=== PATIENT | female | born 1960 | race Caucasian/White ===

== ENCOUNTER 2025-06-15 07:56 | Outpatient (REF) | payer MEDICARE, SELFPAY ==
--- OUTSIDE RECORDS SUMMARY | 2025-06-15 08:01 | XMS_ITS | Clinical Summary ---
Author Organization [facility] Address [address] [place] [phone] Phone Care Team Providers Care Toolroom Checker Name Role Phone Alexus Villegas MD, MPH Primary Care Provid er Allergies Active Allergy Reactions Criticality Noted Date Comments Codeine Nausea and/or Vomiting Medium 04/26/2020 Medications magnesium oxide 250 mg (150 mg elemental) Tab Take 250 mg by mouth daily. Active ascorbic acid, vitamin C, (VITAMIN C) 250 MG tablet Take 1,000 mg by mouth daily. Active cholecalciferol (VITAMIN D3) 5,000 unit capsule Take 1 capsule (5,000 Units total) by mouth daily. 90 capsule 3 08/08/19 22 Active metroNIDAZOLE (METROCREAM) 0.75 % cream APPLY THIN LAYER TWICE A DAY TO FACE FOR ROSACEA 11/20/19 24 Active jltrhsbfwewx-vvejxysa-jh tein (CENTRUM SILVER) Tab Take 1 tablet by mouth daily. Active simvastatin (ZOCOR) 40 MG tabletIndications:Pure hypercholesterolemia TAKE 1 TABLET BY MOUTH EVERY DAY 90 tablet 3 02/06/20 25 Active Active Problems Problem Noted Date Diagnosed Date Osteopenia of necks of both femurs 08/20/2023 Overview (08/20/2023): DEXA 2023- femoral neck osteopenia, otherwise normal Family history of colon cancer 08/08/2021 Overview (08/08/2021): Mother, age 74 yo Assessment & Plan (12/11/2022 8:50 AM EDT): Due 2023 Vitamin D deficiency 08/08/2021 Assessment & Plan (08/08/2021 11:32 AM EST): Restart Vit D supplement Pure hypercholesterolemia 04/26/2020 Assessment & Plan (01/01/2025 8:31 AM EDT): Check labs; lipid panel ordered today for dose monitoring. Assessment & Plan (12/11/2022 9:21 AM EDT): Discussed strategies for increasing medication intake. Assessment & Plan (08/08/2021 11:32 AM EST): Restart simvastatin. Assessment & Plan (04/26/2020 1:08 PM EST): ASCVD risk 1.9% Family history is only major risk factor. Encounters Date Type Department Care Team Description 04/08/2025 Orders Only [facility] [address] [place] [address] Provider, MD Kishor from Last 3 Months Immunizations Immunization Administration Dates Next Due COVID-19 (Pre-04/16) Moderna Vaccine, mRNA, PF 05/09/2021,05/09/2021,07/15/2020,2019 INFLUENZA, SPLIT VIRUS, TRIVALENT PF 03/23/2024 INFLUENZA, SPLIT VIRUS, TRIV ALENT W/ PRESERVATIVE IM 04/19/2016 Influenza Quadrivalent Prese rvative Free IM 03/29/2023,04/13/2022,04/01/2021,2018,04/05/2018 Influenza Quadrivalent w/ Preservative IM 03/26/2019,04/09/2017 Influenza, Unspecified Formulation 04/14/2019 MMR 01/26/2020,01/26/2020,04/24/1996 Tdap 11/21/2018 Family History Medical History Relation Comments Coronary artery disease Brother 1 Alcohol abuse Brother 2 Alzheimer's disease Father No Known Problems Grandson Colon cancer Mother Breast cancer Paternal Grandmother in 195 9 s Cancer Sister biliary Relation Status Comments Brother 1 (Age 57) Brother 2 from liver failu re from alcohol Daughter 1 Alive Daughter 2 Alive Father (Age 85) Grandson Alive Mother (Age 74) Paternal Grandmother Sister Alive Social History Tobacco Use Types Packs/Day Years Used Date Smoking Tobacco: Never Smokeless Tobacco: Never Tobacco Cessation:Counseling Given: Not Answered Alcohol Use Standard Drinks/Week Comments Yes 0 (1 standard drink = 0.6 oz pur e alcohol) Socially not daily or weekly Child or Family Care Answer Date Record ed Do you have problems with on e of the following making it difficult for you to work, study, or receive health care? No 12/25/2024 Education Answer Date Recorded Are you interested in help w ith more adult education (for example, completing high school, GED, job training, learning the Nauruan language, technical skills, or developing parenting skills)? No 12/25/2024 Are you concerned about learning? Not on file 12/25/2024 No 12/25/2024 Yes 12/25/2024 Food Answer Date Recorded Within the past 6 months we worried whether our food would run out before we got money to buy more. Never True 12/25/2024 Within the past 6 months the food we bought just didn't last and we didn't have enough money to get more. Never True Residential Stability Answer Date Recor ded What is your housing situation today? I have daysi sing 12/25/2024 How many times have you move d in the past 12 months? Zero (I did not move) 12/25/2024 Paying for Meds Answer Date Recorded Do you have trouble paying for medicines? No 12/25/2024 Paying Utility Bills Answer Date Record ed Do you have trouble paying your heating or elect ricity bill? No 12/25/2024 Transportation Answer Date Recorded Has the lack of transportati on kept you from medical appointments or from getting medications? No 12/25/2024 Unemployment Answer Date Recorded Are you currently unemployed or working on a part-time or temporary basis, and looking for work? No 08/08/2021 Digital Access Answer Date Recorded No 12/25/2024 Yes 12/25/2024 Do you have reliable internet access at home? Ye oma 12/25/2024 Do you have a device (e.g., phone, tablet, computer) with a working camera? Yes 12/25/2024 Intimate Partner Violence Answer Date R ecorded Are you denied basic needs s uch as food, clothing, or medical care? No 12/25/2024 In the past 12 months have y ou been in a relationship with a person who hurts, threatens, or tries to control you? No 12/25/2024 Are you denied basic needs s uch as food, clothing, or medical care? No 12/25/2024 In the past 12 months have y ou been in a relationship with a person who hurts, threatens, or tries to control you? No 12/25/2024 Comments No Sex and Gender Information Value Date Recorded Sex Assigned at Not on file Legal Sex Female 1:05 PM EDT Gender Identity Not on file Sexual Orientation Not on file Last Filed Vital Signs Vital Sign Reading Time Taken Comments Blood Pressure 124/74 01/01/2025 8:10 AM EDT Pulse 62 01/01/2025 8:10 AM EDT Temperature 36.2 C (97.2 F) 07/11/2024 10:33 AM EST Respiratory Rate 18 07/11/2024 10:4 5 AM EST Oxygen Saturation 99% 01/01/2025 8:10 AM EDT Inhaled Oxygen Concentration - - Weight 82.9 kg (182 lb 12.8 oz) 01/01/2025 8:10 AM EDT Height 160 cm (5' 3 ) 07/11/2024 9:54 AM EST Body Mass Index 32.38 07/11/2024 9:54 AM EST Plan of Treatment Upcoming Encounters Date Type Department Care Team (Late st Contact Info) Description 09/05/2024 Procedure Pass [address] [address] 09/10/2025 7:45 AM EDT Appointment [address] [address] Alexus Villegas MD, MPH [address] [place] [phone] 01/07/2026 8:00 AM EDT Office Visit [facility] [address] [facility] [address] [place] [address] Puja Barrios MD [address] [facility] [address] [place] [address] [email or web address] Health Maintenance Due Date Last Done Comments COLOGUARD 08/31/2004 FIT TEST 08/31/2004 FOBT 08/31/2004 SIGMOIDOSCOPY 08/31/2004 VIRTUAL COLONOSCOPY 08/31/2004 PNEUMOCOCCAL VACCINES (50+ years) (1 of 1 - PCV) 08/31/2009 ZOSTER VACCINES (1 of 2) 08/31/2009 MAMMOGRAM 05/05/2024 05/05/2022, 06/27, 05/14/2018, Additional history exists INFLUENZA VACCINE (#1) 2025 , 03/29/2023, 04/13/2022, Additional history exists COVID-19 VACCINE (2024- season) 2025 05/04/2024, 04/09/2023, 03/17/2022, Additional history exists DEPRESSION SCREENING 12/25/2025 12/25/2024 SCREENING FOR DIABETES 06/01/2026 06/01/2023 LIPID PANEL 06/01/2028 06/01/2023, 08/01/2021 Adult Td,Tdap Booster 11/21/2028 11/21/2018 COLONOSCOPY 07/11/2029 07/11/2024 COLORECTAL CANCER SCREENING 07/11/2029 RSV VACCINE (1 - 1-dose 75+ series) 08/31/2034 HEPATITIS C SCREENING Completed 08/01/2021 HIV ONE-TIME SCREENING (18-65 YEARS) Completed 08/01/2021 OSTEOPOROSIS SCREENING INITIAL (ONE-TIME) Completed 08/17/2023 SMOKING STATUS SCREENING (Once After 26 Yrs) Completed 01/01/2025 HEPATITIS A VACCINES Aged Out No long er eligible based on patient's age to complete this topic HIB VACCINES Aged Out No longer eligi ble based on patient's age to complete this topic MENINGOCOCCAL VACCINES (ACWY) Aged Out No longer eligible based on patient's age to complete this topic MENINGOCOCCAL VACCINES (B) Aged Out N o longer eligible based on patient's age to complete this topic Medical Devices Not on file Procedures Procedure Name Priority Date/Time Associated Diagnosis Comments OUTSIDE PATHOLOGY Routine 03/27/2025 3:4 1 PM EDT ENDOSCOPY, COLON 07/11/2024 10:08 AM EST BD DXA AXIAL (SPINE) WITH HIP Routine 08/17/2023 8:18 AM EST Post menopausal syndrome LIPID PANEL Routine 06/01/2023 8:39 AM EST Pure hypercholesterolemia BI MAMMOGRAM SCREENING WITH TOMOSYNTHESIS WITH CAD (BILATERAL) Routine 05/05/2022 2:14 PM EST Breast screening HEPATITIS C ANTIBODY, QUALITATIVE Routine 08/01/2021 8:12 AM EST Need for hepatitis C screening test from Last 3 Months or Most Recently Relevant to Health Maintenance Results * Outside Pathology (03/27/2025 3:41 PM EDT) us Historical Provider PATHOLOGY ORDERABLES Zohra thrasher Result * ENDOSCOPY, COLON (07/11/2024 10:08 AM EST) Narrative Transcriptions Al Gonzalez MD - 07/11/2024 10:08 AM EST [facility] Patient Name: Ana Rosa Farley Attending MD:: AL GONZALEZ MD, Procedure Date: 07/11/2024 10:08 AM Date of : 1960 Age: 63 Admit Type: Outpatient Gender: Female Room: [facility] 05 Referring MD: Alexus Villegas Exam Type: Colonoscopy Indications: Screening for colorectal malignant neoplasm,Screening patient at increased risk: Family history of 1st-degree relative with colorectal cancer at age60 years (or older) Medications: Monitored Anesthesia Care Procedure: Informed consent was obtained from the patientafter discussion of the indications, limitations, alternatives, benefits, and risks of the procedure. Risks specifically discussed include but are not limited to medication reactions, missed lesions, bleeding, perforation, or the need for emergent surgery. Throughout the procedure, the patient's blood pressure, pulse, end-tidal CO2, and oxygensaturations were monitored continuously. The Olympus adult variable colonoscope [id number] #3 was introduced through the anus and advanced to the terminal ileum. The colonoscopy was performedwithout difficulty. The patient tolerated the procedurewell. The quality of the bowel preparation was good. Anatomical landmarks were photographed. Complications: No immediate complications. Estimated blood loss:None. Findings: The perianal and digital rectal examinations were normal. Two sessile polyps were found in the rectum. The polyps were small in size. These polyps wereremoved with a cold snare. Resection and retrieval were complete. The recto-sigmoid colon, sigmoid colon, descending colon, splenic flexure, transverse colon, hepatic flexure, ascending colon, cecum, appendicealorifice, ileocecal valve, ileum, rectum (on retroflexion)and ascending colon (on retroflexion) appearednormal. Impression: - Two small polyps in the rectum, removed with acold snare. Resected and retrieved. - The rectum (on retroflexion), ascending colon (on retroflexion), sigmoid colon, descending colon, splenic flexure, transverse colon, hepatic flexure, ascending colon, cecum, recto-sigmoid colon,ileocecal valve, appendiceal orifice and terminal ileum are normal. Recommendation: - Discharge patient to home. - Resume previous diet. - Continue present medications. - Await pathology results. - Repeat colonoscopy in 5 years for surveillance. - I will send you pathology results by letter. Ifyou do not get results in 3 weeks telephone stewart. AL GONZALEZ MD 07/11/2024 10:30:53 AM This report has been signed electronically. Number of Addenda: 0 Note Initiated On: 07/11/2024 10:08 AM Procedure Code(s): --- Professional --- 43293, Colonoscopy, flexible; with removal of tumor(s), polyp(s), or other lesion(s) by snare technique --- Technical --- 85320, Colonoscopy, flexible; with removal of tumor(s), polyp(s), or other lesion(s) by snare technique Diagnosis Code(s): --- Professional --- Z12.11, Encounter for screening for malignantneoplasm of colon Z80.0, Family history of malignant neoplasm of digestive organs D12.8, Benign neoplasm of rectum --- Technical --- Z12.11, Encounter for screening for malignantneoplasm of colon Z80.0, Family history of malignant neoplasm of digestive organs D12.8, Benign neoplasm of rectum CPT copyright 2021 [employer]. All rights reserved. The codes documented in this report are preliminary and upon starbucks clerk reviewmay be revised to meet current compliance requirements. Procedure Date: 07/11/2024 10:08:[address] [place] [address] [place] Alexus Villegas MD, MPH GI PROCEDURE ORDERAB LES Final Result * BD DXA AXIAL (SPINE) WITH HIP (08/17/2023 8:18 AM EST) Anatomical Region Laterality Modality Bone Density Bone Density 08/20/2023 12:5 2 PM EST Impressions 08/20/2023 2:51 PM EST Osteopenia based upon bone mineral density in the bilateral femoral necks. ATTESTATION: I, Marcel Roldan as teaching physician, have reviewed the images for this case and if necessary edited the report originally created by Tony العراقي. Narrative 08/20/2023 2:51 PM EST BD DXA AXIAL (SPINE) WITH HIP INDICATION: Postmenopausal estrogen deficiency. Screening for osteoporosis. COMPARISON: None. Evaluation of the lumbar spine and both hips is obtained and appears technically adequate. The lumbar spine from L1 through L4 discloses a total bone mineral density of 1.019 g/cm2 T-score: -0.3 Z-Score: 1.4 WHO Classification: Normal The right hip (total) has a total bone mineral density of 0.827 g/cm2 T-score: -0.9 Z-Score: 0.2 WHO Classification: Normal The right hip (neck) has a total bone mineral density of 0.680 g/cm2 T-score: -1.5 Z-Score: -0.1 WHO classification: Osteopenia The left hip (total) has a total bone mineral density of 0.839 g/cm2 T-score: -0.8 Z-Score: 0.3 WHO Classification: Normal The left hip (neck) has a total bone mineral density of 0.642 g/cm2 T-score: -1.9 Z-Score: -0.4 WHO classification: Osteopenia FRAX: 10-Year Fracture Risk Major Osteoporotic Fracture: 9.4% Hip Fracture: 1.1% Procedure Note Marcel Roldna MD - 08/20/2023 BD DXA AXIAL (SPINE) WITH HIP INDICATION: Postmenopausal estrogen deficiency. Screening forosteoporosis. COMPARISON: None. Evaluation of the lumbar spine and both hips is obtained and appearstechnically adequate. The lumbar spine from L1 through L4 discloses a total bone mineral densityof 1.019 g/cm2 T-score: -0.3 Z-Score: 1.4 WHO Classification: Normal The right hip (total) has a total bone mineral density of 0.827 g/cm2 T-score: -0.9 Z-Score: 0.2 WHO Classification: Normal The right hip (neck) has a total bone mineral density of 0.680 g/cm2 T-score: -1.5 Z-Score: -0.1 WHO classification: Osteopenia The left hip (total) has a total bone mineral density of 0.839 g/cm2 T-score: -0.8 Z-Score: 0.3 WHO Classification: Normal The left hip (neck) has a total bone mineral density of 0.642 g/cm2 T-score: -1.9 Z-Score: -0.4 WHO classification: Osteopenia FRAX: 10-Year Fracture Risk Major Osteoporotic Fracture: 9.4% Hip Fracture: 1.1% IMPRESSION: Osteopenia based upon bone mineral density in the bilateral femoralnecks. ATTESTATION: I, Marcel Roldan as teaching physician, have reviewed theimages for this case and if necessary edited the report originally createdby Tony العراقي. us Alexus Villegas MD, MPH IMG BD BONE DENSITY DEXA Final Result * (ABNORMAL) Lipid panel (06/01/2023 8:39 AM EST) HDL 68 mg/dL [facility] Comment: Interpretation <40 mg/dL: Low HDL cholesterol (major risk factor for CHD) Greater than or equal to 60 mg/dL: High HDL cholesterol ( negative risk factor for CHD) HDL - cholesterol is affected by a number of factors, e.g. smoking, excerise, hormones, sex and age. CHOLESTEROL 204 0 - 240 mg/dL [facility] TRIGLYCERIDES 62 30 - 160 mg/dL [facility] LDL 124 50 - 129 mg/dL [facility] Comment: LDL levels in terms of risk for coronary heart disease: <100 mg/dL: Optimal 100-129 mg/dL: Near or above optimal 130-159 mg/dL: Borderline high 160-189 mg/dL: High >190 mg/dL: Very High CARDIAC RISK RATIO 3.0(L) 3.3 - 4.4 [facility] Blood 06/01/2023 8:39 AM EST 06/01/2023 8:43 AM EST us Alexus Villegas MD, MPH LAB BLOOD BKR ORDERA BLES Final Result [address] [place] [address] * BI MAMMOGRAM SCREENING WITH TOMOSYNTHESIS WITH CAD (BILATERAL) (05/05/2022 2:14 PM EST) Anatomical Region Laterality Modality Breast Left, Breast Right, Breast Bilateral Bila teral Mammography 05/09/2022 5:23 PM EST Impressions 05/09/2022 5:38 PM EST No mammographic signs of malignancy. Annual screening is recommended. BI-RADS CATEGORY: 1 - Negative. DENSITY: The breast tissue is almost entirely fat. Narrative 05/09/2022 5:38 PM EST Bilateral mammography is performed in conjunction with computed aided detection. 3-D tomography along with 2-D C view imaging was also performed. Comparison made to previous dated as far back as 08/23/2016 and as recent as 07/24/2019. No suspicious masses, areas of architectural distortion or suspicious microcalcifications. Procedure Note Al Kim MD - 05/09/2022 Bilateral mammography is performed in conjunction with computed aideddetection. 3-D tomography along with 2-D C view imaging was alsoperformed. Comparison made to previous dated as far back as 08/23/2016 andas recent as 07/24/2019. No suspicious masses, areas of architectural distortion or suspiciousmicrocalcifications. IMPRESSION: No mammographic signs of malignancy. Annual screening is recommended. BI-RADS CATEGORY: 1 - Negative. DENSITY: The breast tissue is almost entirely fat. us Alexus Villegas MD, MPH IMG MG EXAMS Zohra l Result * Hepatitis C antibody, qualitative (08/01/2021 8:12 AM EST) HCV NON-REACTIV E NON-REACTI VE [facility] Blood 08/01/2021 8:12 AM EST 08/01/2021 8:16 AM EST us Alexus Villegas MD, MPH LAB BLOOD BKR ORDERA BLES Final Result [facility] [address] [place] [address] from Last 3 Months or Most Recently Relevant to Health Maintenance Insurance [email or web address] MEDEX SUPPLEMENT MEDICARE PART A & B [email or web address] MEDEX SUPPLEMENT MEDICARE PART A & B MEDEX SUPPLEMENT MEDICARE PART A & B [employer] MEDEX SUPPLEMENT MEDICARE PART A & B [employer] MEDEX SUPPLEMENT MEDICARE PART A & B [facility] MEDEX SUPPLEMENT MEDICARE PART A & B Care Teams Toolroom Checker Relationship Specialty Start Date End Date Alexus Villegas MD, MPH [address] [place] [address] [address] [place] [address] [email or web address] PCP - General Family Medicine 04/26/20 Additional Source Comments The information contained in this document represents components of the legal health record. It is not the complete legal health record.[facility]
--- OUTSIDE RECORDS SUMMARY | 2025-06-15 08:01 | XMS_ITS | Encounter Summary ---
Author Organization [facility] Address [address] [place] [address] Phone Care Team Providers Care Apprenticeship Representative Name Role Phone Alexus Villegas MD, MPH Primary Care Provid er Encounter Details Date Type Department Care Team (Late st Contact Info) Description 04/13/2022 Procedure Pass [facility], [address] [address] Social History Tobacco Use Types Packs/Day Years Used Date Smoking Tobacco: Never Smokeless Tobacco: Never Alcohol Use Standard Drinks/Week Comments Yes 0 (1 standard drink = 0.6 oz pur e alcohol) Socially not daily or weekly Child or Family Care Answer Date Record ed Do you have problems with on e of the following making it difficult for you to work, study, or receive health care? No 08/08/2021 Education Answer Date Recorded Are you interested in help w ith more adult education (for example, completing high school, GED, job training, learning the [place]an language, technical skills, or developing parenting skills)? No 08/08/2021 Are you concerned about learning? Not on file 08/08/2021 No 08/08/2021 Yes 08/08/2021 Food Answer Date Recorded Within the past 6 months we worried whether our food would run out before we got money to buy more. Never True 08/08/2021 Within the past 6 months the food we bought just didn't last and we didn't have enough money to get more. Never True Residential Stability Answer Date Recor ded What is your housing situation today? I have daysi irizarry 08/08/2021 How many times have you move d in the past 12 months? Zero (I did not move) 08/08/2021 06 Are you worried that in t he next 2 months, you may not have your own housing to live in? No 08/08/2021 Paying for Meds Answer Date Recorded Do you have trouble paying for medicines? No 08/08/2021 Paying Utility Bills Answer Date Record ed Do you have trouble paying your heating or elect ricity bill? No 08/08/2021 Transportation Answer Date Recorded Has the lack of transportati on kept you from medical appointments or from getting medications? No 08/08/2021 Unemployment Answer Date Recorded Are you currently unemployed or working on a part-time or temporary basis, and looking for work? No 08/08/2021 Comments No Sex and Gender Information Value Date Recorded Sex Assigned at Not on file Legal Sex Female 1:05 PM EDT Gender Identity Not on file Sexual Orientation Not on file documented as of this encounter Plan of Treatment Upcoming Encounters Date Type Department Care Team (Late st Contact Info) Description 09/05/2024 Procedure Pass [address] [address] 09/10/2025 7:45 AM EDT Appointment [address] [address] Alexus Villegas MD, MPH [address] [place] [address] 01/07/2026 8:00 AM EDT Office Visit [facility] [address] [address] Puja Barrios MD [address] [place] [phone] documented as of this encounter Visit Diagnoses Not on filedocumented in this encounter Additional Health Concerns Assessment Noted Time PHQ-2 Depression Total Score: 0 08/08/19 22 9:05 AM EST documented as of this encounter Care Teams Apprenticeship Representative Relationship Specialty Start Date End Date Alexus Villegas MD, MPH [address] [place] [phone] [email or web address] PCP - General Family Medicine 04/26/20 documented as of this encounter Additional Source Comments The information contained in this document represents components of the legal health record. It is not the complete legal health record.[facility]
--- OUTSIDE RECORDS SUMMARY | 2025-06-15 08:02 | XMS_ITS | Patient Health Record ---
[facility] Address [address] [place] [address] Care Team Providers Care Pharmacy Scheduler Name Role Phone BakariMichelle redmondherine Primary Care Provider Unavail able [facility] Unavailable [phone] Allergies Allergen (clinical drug ingredient) Drug/Non Drug Allergy documented on EMR Reaction Allergy Type Onset Date Status codeine Codeine nausea Drug Allergy Active hydrocodone HYDROcodone nausea Drug Allergy Act sandie Reason For Referral No Information Medications Medication SIG (Take, Route, Fr equency, Duration) Notes Start Date End Date Status Simvastatin 40 MG 1 tablet in the even ing Orally Once a day Active Vitamin D Active Vitamin C Active Magnesium Active Immunizations Vaccine Route Administration Date Status Comme nts Influenza Unknown 03/25/2024 Administered Social History Tobacco Use: Social History Observation Description Date Details (start date - stop date) Never Smoker NA - NA Tobacco use other than smoking: Question Answer Notes Are you an other tobacco user? No Tobacco Control (Standard) Question Answer Notes Tobacco use: Nonsmoker Additional Findings: Tobacco non-user Current no nsmoker AUDIT-C (Standard) Question Answer Notes Did you have a drink contain ing alcohol in the past year? Yes How often did you have a dri nk containing alcohol in the past year? Declined to specify (0 point) How many drinks did you have on a typical day when you were drinking in the past year? Declined to specify (0 point) How often did you have six o r more drinks on one occasion in the past year? Declined to specify (0 point) Points 0 Interpretation Negative Problems Problem Type SNOMED Code ICD Code Onset Dates Problem Status W/U Status Risk Notes Problem Acquired hallux valgus (33044803) Hallux valgus (acquired), left foot (M20.12) Active confirmed Vital Signs Blood pressure diastolic 65 mm Hg 01/02/2025 Height 5ft 3inch in 01/02/2025 Blood pressure systolic 128 mm Hg 01/02/2025 Weight 180 lbs 01/02/2025 BMI 31.88 kg/m2 01/02/2025 Encounters Encounter Location Date Provider Diagnosis [facility] [address] [address] 01/02/2025 [facility] Pain in left foot M79.672 ; Pain in left ankle and joints of left foot M25.572 ; Bursitis of left foot M77.52 and Hallux valgus (acquired), left foot M20.[address] [facility] [address] 01/02/2025 [facility] Assessments Encounter Date Diagnosis (ICD Code) Assessment Notes Treatment Notes Treatment Clinical Notes Section Notes 01/02/2025 Pain in left ankle and joints of left foot (ICD-10 - M25.572) 01/02/2025 Pain in left foot (ICD-10 - M79.672) 01/02/2025 Bursitis of left foot (ICD-10 - M77.52) 01/02/2025 Hallux valgus (acquired), left foot (ICD-10 - M20.12) Plan Of Treatment Pending Test Test Name Order Date X ray : Foot, left 3V 01/02/2025 Insurance Providers Payer Name Payer Address Payer Phone Subscriber Number Group Number Insured Name Patient Relationship to Insured Coverage Start Date Coverage End Date [facility] [employer] [address] [place] [phone] [id number] Kristofer Farley Self - patient is the insured 5 [employer] [address] [place] [address] [phone] [id number] Kristofer Farley Self - patient is the insured Medical (General) History Medical History History ICD Code Cholesterol covid-19 Measles Mumps Chicken pox
--- OUTSIDE RECORDS SUMMARY | 2025-06-15 08:02 | XMS_ITS | Patient Health Record ---
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 Name Role Phone Christa Jackson Primary Care Provider Leobardo Muller Jr Unavailable Allergies Allergen (clinical drug ingredient) Drug/Non Drug Allergy documented on EMR Reaction Allergy Type Onset Date Status codeine Codeine Sulfate Unknown Drug Allergy A ctive Reason For Referral No Information Medications Medication SIG (Take, Route, Frequency, Duration) Notes Start Date End Date Status Simvastatin 20 MG Tablet 1 tablet in the evening Orally Once a day Active Suprep Bowel Prep 1 Solution as directed Orally 1; Duration: 1 dose 07/24/2018 Active Immunizations Vaccine Route Administration Date Status Comme nts Influenza Unknown 04/16/2018 Administered Social History Social History Drugs/Alcohol: Social Info Question Answer Notes Alcohol Screen Did you have a drink containing alcohol in the past year? Yes How often did you have a drink containing alcohol in the past year? 2 to 4 times a month (2 points) How many drinks did you have on a typical day when you were drinking in the past year? 1 or 2 drinks (0 point) How often did you have 6 or more drinks on one occasion in the past year? 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 Problems Problem Type SNOMED Code ICD Code Onset Dates Problem Status W/U Status Risk Notes Problem Colon cancer screening (659948138) Colon cancer screening (V76.51) Active confirmed Problem Colon cancer screening (422580360) Colon cancer screening (Z12.11) Active confirmed Problem Pre-procedure evaluation check (062174385) Encounter for other preprocedural examination (Z01.818) Active confirmed Problem Family History of Cancer of Colon (Situation) (891943730) Family history of colon cancer (Z80.0) Active confirmed Plan Of Treatment Future Test Test Name Order Date COLONOSCOPY 12/27/2012 COLONOSCOPY 07/24/2018 Insurance Providers Payer Name Payer Address Payer Phone Subscriber Number Group Number Insured Name Patient Relationship to Insured Coverage Start Date Coverage End Date [facility] [address] [address] [place] [id number] JOAHNA GOLDMAN Self - patient is the insured Medical (General) History Medical History History ICD Code colonoscopy 04/04/13 colon polyps, hyperplastic and lymphoid elevated cholesterol iron def anemia menorrhagia Denies IN,DM,CVA,Lung disease,renal dise ase Surgical History Surgery Date(Month/Year) Caesarean section x1 wisdom teeth extraction
--- OUTSIDE RECORDS SUMMARY | 2025-06-15 08:02 | XMS_ITS | Encounter Summary ---
Author Organization [facility] Address [address] [place] [address] Phone Care Team Providers Care Metal Worker Name Role Phone Alexus Villegas MD, MPH Primary Care Provid er Encounter Details Date Type Department Care Team (Late st Contact Info) Description 04/13/2022 Transcribe Orders Virtual Department [address] [place] [address] Alexus Villegas MD, MPH [address] [facility] [address] [place] [address] [email or web address] Breast screening (Primary Dx) Social History Tobacco Use Types Packs/Day Years Used Date Smoking Tobacco: Never Smokeless Tobacco: Never Alcohol Use Standard Drinks/Week Comments Yes 0 (1 standard drink = 0.6 oz pur e alcohol) Rare Child or Family Care Answer Date Record ed Do you have problems with on e of the following making it difficult for you to work, study, or receive health care? No 08/08/2021 Education Answer Date Recorded Are you interested in help w ith more adult education (for example, completing high school, GED, job training, learning the Mongolian language, technical skills, or developing parenting skills)? [...] and looking for work? No 08/08/2021 Comments Unknown Sex and Gender Information Value Date Recorded Sex Assigned at Not on file Legal Sex Female 1:05 PM EDT Gender Identity Not on file Sexual Orientation Not on file documented as of this encounter Plan of Treatment Upcoming Encounters Date Type Department Care Team (Late st Contact Info) Description 09/05/2024 Procedure Pass [address] [address] 09/10/2025 7:45 AM EDT Appointment [address] [address] Alexus Villegas MD, MPH [address] [address] 01/07/2026 8:00 AM EDT Office Visit [facility] 15 [facility] [address] [place] [address] Puja Barrios MD [address] [address] [email or web address] documented as of this encounter Results * BI MAMMOGRAM SCREENING WITH TOMOSYNTHESIS WITH [...] fat. us Alexus Villegas MD, MPH IMG EXAMS Zohra thrasher Result documented in this encounter Visit Diagnoses Diagnosis Breast screening- Primary Breast screening, unspecified Breast screening Breast screening, unspecified documented in this encounter Additional Health Concerns Assessment Noted Time PHQ-2 Depression Total Score: 0 08/08/19 22 9:05 AM EST documented as of this encounter Care Teams Metal Worker Relationship Specialty Start Date End Date Alexus Villegas MD, MPH [address] [place] [id number] [email or web address] PCP - General Family Medicine 04/26/20 documented as of this encounter Additional Source Comments The information contained in this document represents components of the legal health record. It is not the complete legal health record.[facility]
--- OUTSIDE RECORDS SUMMARY | 2025-06-15 08:02 | XMS_ITS | Encounter Summary ---
Author Organization [facility] Address [address] [place] [address] Phone Care Team Providers Care Experimental Aircraft Mechanic Name Role Phone Alexus Villegas MD, MPH Primary Care Provid er Encounter Details Date Type Department Care Team (Late st Contact Info) Description 07/11/2024 Procedure Pass [facility] Admitting Dept Virtual Department [address] [place] [address] Social History Tobacco Use Types Packs/Day Years [...] work, study, or receive health care? No 12/13/2023 Education Answer Date Recorded Are you interested in help w ith more adult education (for example, completing high school, GED, job training, learning the Chinese language, technical skills, or developing parenting skills)? No 12/13/2023 Are you concerned about learning? Not on file 12/13/2023 No 12/13/2023 Yes 12/13/2023 Food Answer Date Recorded Within the past 6 months we worried whether our food would run out before we got money to buy more. Never True 12/13/2023 Within the past 6 months the food we bought just didn't last and we didn't have enough money to get more. Never True Residential Stability Answer Date Recor ded What is your housing situation today? I have daysi irizarry 12/13/2023 How many times have you move d in the past 12 months? Zero (I did not move) 12/13/2023 Paying for Meds Answer Date Recorded Do you have trouble paying for medicines? No 12/13/2023 Paying Utility Bills Answer Date Record ed Do you have trouble paying your heating or elect ricity bill? No 12/13/2023 Transportation Answer Date Recorded Has the lack of transportati on kept you from medical appointments or from getting medications? No 12/13/2023 Unemployment Answer Date Recorded Are you currently unemployed or working on a part-time or temporary basis, and looking for work? No 08/08/2021 Digital Access Answer Date Recorded No 12/13/2023 Yes 12/13/2023 Do you have reliable internet access at home? Ye s 12/13/2023 Do you have a device (e.g., phone, tablet, computer) with a working camera? Yes 12/13/2023 Intimate Partner Violence Answer Date R ecorded Are you denied basic needs s uch as food, clothing, or medical care? No 07/11/2024 In the past 12 months have y ou been in a relationship with a person who hurts, threatens, or tries to control you? No 07/11/2024 Are you denied basic needs s uch as food, clothing, or medical care? No 07/11/2024 In the past 12 months have y ou been in a relationship with a person who hurts, threatens, or tries to control you? No 07/11/2024 Comments No Sex and Gender Information Value Date Recorded Sex Assigned at Not on file Legal Sex Female 1:05 PM EDT Gender Identity Not on file Sexual Orientation Not on file documented as of this encounter Plan of Treatment Upcoming Encounters Date Type Department Care Team (Late st Contact Info) Description 09/05/2024 Procedure Pass [address] [address] 09/10/2025 7:45 AM EDT Appointment [address] [address] Alexus Villegas MD, MPH [address] [place] [phone] [email or web address] 01/07/2026 8:00 AM EDT Office Visit [facility] [address] [facility] [address] [place] [address] Puja Barrios MD [address] [place] [phone] [email or web address] documented as of this encounter Visit Diagnoses Not on filedocumented in this encounter Additional Health Concerns Assessment Noted Time PHQ-2 Depression Total Score: 1 12/13/19 24 9:00 AM EDT documented as of this encounter Care Teams Experimental Aircraft Mechanic Relationship Specialty Start Date End Date Alexus Villegas MD, MPH [address] [place] [phone] [email or web address] PCP - General Family Medicine 04/26/20 documented as of this encounter Additional Source Comments The information contained in this document represents components of the legal health record. It is not the complete legal health record.[facility]
== END 2025-06-15 07:57 | disposition home or self-care (01) ==
LOC: HO.MAMMO 07:56
PROVIDERS: PCP Family Medicine; Visit Provider Family Medicine
DX: Z12.31 Encounter for screening mammogram for malignant neoplasm of breast (principal)
CPT/HCPCS: 77063; 77067

== ENCOUNTER → 2025-06-15 08:00 | Outpatient (BNV) | payer MEDICARE, SELFPAY | PROVIDERS: PCP Family Medicine; Visit Provider Internal Medicine | DX: Z12.31 Encounter for screening mammogram for malignant neoplasm of breast (principal) | CPT/HCPCS: 77063; 77067 ==